=== PATIENT | male | born 1995 | race Caucasian/White ===

== ENCOUNTER 2018-08-18 21:00 | Inpatient (IN) ==
--- NOTE | 2018-08-18 21:03 | Emergency Department Note ---
General Adult HPI - General Stated complaint: SI Time Seen by Provider: 08/18/18 21:01 Source: patient, EMS Mode of arrival: EMS Limitations: no limitations Nursing Notes Reviewed: Yes Vital Signs Reviewed: Yes - Related Data Home Medications Medication Instructions Recorded Confirmed Potassium Chloride [Klor-Con 10] 50 meq PO QID 01/19/18 08/06/18 Previous Rx's Medication Instructions Recorded Fexofenadine HCl 180 mg PO DAILY #20 tablet 05/08/18 Guaifenesin/Dm/Pseudoephedrine 1 each PO Q6HR PRN #30 tablet 05/08/18 [Capmist Dm Tablet] Allergies Allergy/AdvReac Type Severity Reaction Status Date / Time peanut Allergy Severe Anaphylaxis Verified 08/18/18 21:17 Past Medical History - Past Medical History Medical history: Reports: non-contributory Surgical history: Reports: no surgical history Psychiatric history: Reports: anxiety, bipolar, depression, prior suicide attempt, schizophrenia, previous psychiatric hospitalization - Social History Smoking Status: Former smoker Smokeless Tobacco Status: No Alcohol use: Reports: rarely Drug use: Reports: none Course Vital Signs Temperature 98.8 F 08/18/18 21:04 Pulse Rate 90 08/18/18 21:04 Respiratory Rate 16 08/18/18 21:04 Blood Pressure 122/63 08/18/18 21:04 O2 Sat by Pulse Oximetry 98 08/18/18 21:04 Temperature 98.8 F 08/18/18 21:04 Pulse Rate 90 08/18/18 21:04 Respiratory Rate 16 08/18/18 21:04 Blood Pressure 122/63 08/18/18 21:04 O2 Sat by Pulse Oximetry 98 08/18/18 21:04 Oxygen Delivery Oxygen Delivery Room Air
[2018-08-18 21:37] LABS: Bilirubin,Urine Negative (Negative); Blood,Urine Negative (Negative); Clarity,Urine Clear (Clear); Color,Urine Yellow (Yellow); Glucose,Urine (UA) Normal (Normal); Ketones,Urine Negative (Negative); Leukocyte Esterase,Urine Negative (Negative); Nitrite,Urine Negative (Negative); Protein,Urine Negative (Neg-Trace); Specific Gravity,Urine 1.024 (1.010-1.025); Urobilinogen,Urine Normal (Normal)
--- NOTE | 2018-08-18 21:40 | Emergency Department Note ---
Disposition Clinical Impression: Suicidal ideation, Hallucinations Disposition: Admitted As Inpatient Condition: Fair Time of Disposition: 00:04 General Adult HPI - General Chief complaint: ED Psychiatric Symptoms Stated complaint: SI Time Seen by Provider: 08/18/18 21:01 Source: patient, EMS Limitations: no limitations Nursing Notes Reviewed: Yes Vital Signs Reviewed: Yes - History of Present Illness Pain Scale: 0 - Related Data Home Medications Medication Instructions Recorded Confirmed Potassium Chloride [Klor-Con 10] 10 meq PO TID 01/19/18 08/18/18 Divalproex (12 HR) [Depakote (12 500 mg PO HS 08/18/18 08/18/18 HR)] Emtricitabine/Tenofovir [Truvada 1 each PO DAILY 08/18/18 08/18/18 200 mg-300 mg Tablet] Naltrexone HCl 50 mg PO DAILY 08/18/18 08/18/18 Raltegravir Potassium [Isentress] 400 mg PO BID 08/18/18 08/18/18 Ziprasidone HCl [Geodon] 60 mg PO BID 08/18/18 08/18/18 traZODone [TraZODone] 50 mg PO HS 08/18/18 08/18/18 Allergies Allergy/AdvReac Type Severity Reaction Status Date / Time peanut Allergy Severe Anaphylaxis Verified 08/18/18 21:17 Past Medical History - Past Medical History Medical history: Reports: non-contributory Surgical history: Reports: no surgical history Psychiatric history: Reports: anxiety, bipolar, depression, prior suicide attempt, schizophrenia, previous psychiatric hospitalization - Social History Smoking Status: Former smoker Smokeless Tobacco Status: No Alcohol use: Reports: rarely Drug use: Reports: none Physical Exam - General Limitations: no limitations General appearance: alert Course Vital Signs Temperature 98.8 F 08/18/18 21:04 Pulse Rate 90 08/18/18 21:04 Respiratory Rate 16 08/18/18 21:04 Blood Pressure 122/63 08/18/18 21:04 O2 Sat by Pulse Oximetry 98 08/18/18 21:04 Temperature 98.8 F 08/18/18 21:04 Pulse Rate 90 08/18/18 21:04 Respiratory Rate 16 08/18/18 21:04 Blood Pressure 122/63 08/18/18 21:04 O2 Sat by Pulse Oximetry 98 08/18/18 21:04 Oxygen Delivery Oxygen Delivery Room Air Medical Decision Making - Lab Data Lab results reviewed: Yes I reviewed the patient's lab results. Result diagrams: 08/18/18 21:24 08/18/18 21:24 Lab Results 08/18/18 08/18/18 08/18/18 Range/Units 21:20 21:24 21:24 WBC 6.3 (4.3-11.1) K/mcL RBC 4.76 (4.19-5.50) M/mcL Hgb 14.9 (12.9-16.9) g/dL Hct 44.2 (37.5-50.1) % MCV 92.9 (83.0-100.0) fL MCH 31.3 (28.0-33.3) pg MCHC 33.7 (31.6-35.5) g/dL RDW 12.7 (11.5-14.5) % Plt Count 285 (140-400) K/mcL MPV 9.6 (9.4-12.4) fL Immature Gran % 0.3 (0-4) % Seg Neutrophils % 44.8 % Lymphocytes % 37.4 % Monocytes % 8.9 % Eosinophils % 7.5 % Basophils % 1.1 % Neutrophils # 2.8 (1.6-8.9) K/mcL Lymphocytes # 2.4 (0.6-4.6) K/mcL Monocytes # 0.6 (0.0-1.3) K/mcL Eosinophils # 0.5 (0.0-0.6) K/mcL Basophils # 0.1 (0.0-0.2) K/mcL Sodium (136-145) mEq/L Potassium (3.5-5.1) mEq/L Chloride (98-107) mEq/L Carbon Dioxide (23-29) mEq/L BUN (6-20) mg/dL Creatinine (0.70-1.30) mg/dL Est GFR ( Amer) (> 60) Est GFR (Non-Af Amer) (> 60) BUN/Creatinine Ratio (6-26) Glucose (70-105) mg/dL Calculated Osmolality (280-300) Calcium (8.6-10.3) mg/dL Urine Color Yellow (Yellow) Urine Clarity Clear (Clear) Urine pH 6.0 (5.0-8.0) pH Units Ur Specific [place] 1.024 (1.010-1.025) Urine Protein Negative (Neg-Trace) mg/dL Urine Glucose (UA) Normal (Normal) mg/dL Urine Ketones Negative (Negative) mg/dL Urine Blood Negative (Negative) Urine Nitrite Negative (Negative) Urine Bilirubin Negative (Negative) Urine Urobilinogen Normal (Normal) mg/dL Ur Leukocyte Esterase Negative (Negative) Salicylates (15.0-30.0) mg/dL Urine Opiates Screen Negative (Usnacp=212) ng/mL Acetaminophen (10-20) mcg/mL Ur Barbiturates Screen Negative (Rlnotg=634) ng/mL Ur Phencyclidine Scrn Negative (Cutoff=25) ng/mL Ur Amphetamines Screen Negative (Bcdzjy=0061) ng/mL U Benzodiazepines Scrn Negative (Wgxntu=299) ng/mL Urine Cocaine Screen Negative (Cutoff= 300) ng/mL U Marijuana (THC) Screen Negative (Cutoff = 50) ng/mL Ur Drug Screen Interp See Below Ethyl Alcohol (Less than 10) mg/dL 08/18/18 Range/Units 21:24 WBC (4.3-11.1) K/mcL RBC (4.19-5.50) M/mcL Hgb (12.9-16.9) g/dL Hct (37.5-50.1) % MCV (83.0-100.0) fL MCH (28.0-33.3) pg MCHC (31.6-35.5) g/dL RDW (11.5-14.5) % Plt Count (140-400) K/mcL MPV (9.4-12.4) fL Immature Gran % (0-4) % Seg Neutrophils % % Lymphocytes % % Monocytes % % Eosinophils % % Basophils % % Neutrophils # (1.6-8.9) K/mcL Lymphocytes # (0.6-4.6) K/mcL Monocytes # (0.0-1.3) K/mcL Eosinophils # (0.0-0.6) K/mcL Basophils # (0.0-0.2) K/mcL Sodium 139 (136-145) mEq/L Potassium 4.0 (3.5-5.1) mEq/L Chloride 105 (98-107) mEq/L Carbon Dioxide 26 (23-29) mEq/L BUN 12 (6-20) mg/dL Creatinine 0.99 (0.70-1.30) mg/dL Est GFR ( Amer) > 60 (> 60) Est GFR (Non-Af Amer) > 60 (> 60) BUN/Creatinine Ratio 12 (6-26) Glucose 90 (70-105) mg/dL Calculated Osmolality 287 (280-300) Calcium 9.8 (8.6-10.3) mg/dL Urine Color (Yellow) Urine Clarity (Clear) Urine pH (5.0-8.0) pH Units Ur Specific [place] (1.010-1.025) Urine Protein (Neg-Trace) mg/dL Urine Glucose (UA) (Normal) mg/dL Urine Ketones (Negative) mg/dL Urine Blood (Negative) Urine Nitrite (Negative) Urine Bilirubin (Negative) Urine Urobilinogen (Normal) mg/dL Ur Leukocyte Esterase (Negative) Salicylates < 2.5 L (15.0-30.0) mg/dL Urine Opiates Screen (Aezhdx=849) ng/mL Acetaminophen < 10 L (10-20) mcg/mL Ur Barbiturates Screen (Qcvwnl=192) ng/mL Ur Phencyclidine Scrn (Cutoff=25) ng/mL Ur Amphetamines Screen (Vvufra=1787) ng/mL U Benzodiazepines Scrn (Pynwst=458) ng/mL Urine Cocaine Screen (Cutoff= 300) ng/mL U Marijuana (THC) Screen (Cutoff = 50) ng/mL Ur Drug Screen Interp Ethyl Alcohol < 10 (Less than 10) mg/dL Attestation Statement - Attestation Attestation: I, Jatinder Caceres MD, personally evaluated this patient and discussed their management with the resident physician. I reviewed the resident's note and agree with the documented findings, medical decision making, and plan of care. 22-year-old male presents to the emergency department by EMS with a complaint of suicidal ideation as well as increased auditory and visual hallucinations. Patient states that he saw drops of blood falling and then puddles of blood on the floor and then he saw footprints like someone was walking through the blood. Patient states this made him feel suicidal and he wanted to cut himself. He does have a history of cutting himself and suicidal ideation in the past. He was just recently admitted to a psychiatric facility within the past 2 weeks. Patient states that he is on medication for his schizophrenia but he feels like it is not helping and his symptoms are getting worse. He feels like he needs to be admitted to the [place] psychiatric unit. 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 He states he becomes very mean and aggressive with his other personality. He denies any recent drug or alcohol use. On examination patient is a well-developed well-nourished well-appearing young male in no acute distress. He is alert and oriented 3. He is cooperative. There is no cyanosis or diaphoresis. Breath sounds are clear and equal bilat erally. Heart regular rate and rhythm. Abdomen soft and nontender with normal bowel sounds. No gross focal neurological deficits. Labs reviewed. No significant abnormalities. Tox screen negative. Patient medically cleared for psychiatric evaluation. [address] psychiatry department was consulted to evaluate patient in the emergency department. After evaluation the patient is being admitted to the [address] psychiatric unit.
[2018-08-18 21:41] LABS: Basophils # 0.1 K/mcL (0.0-0.2); Basophils % 1.1 %; Eosinophils # 0.5 K/mcL (0.0-0.6); Eosinophils % 7.5 %; Hematocrit 44.2 % (37.5-50.1); Hemoglobin 14.9 g/dL (12.9-16.9); Immature Granulocytes % 0.3 % (0-4); Lymphocytes # 2.4 K/mcL (0.6-4.6); Lymphocytes % 37.4 %; Mean Corpuscular HGB Conc 33.7 g/dL (31.6-35.5); Mean Corpuscular Hemoglobin 31.3 pg (28.0-33.3); Mean Corpuscular Volume 92.9 fL (83.0-100.0); Mean Platelet Volume 9.6 fL (9.4-12.4); Monocytes # 0.6 K/mcL (0.0-1.3); Monocytes % 8.9 %; Neutrophils # 2.8 K/mcL (1.6-8.9); Platelet Count 285 K/mcL (140-400); Red Blood Count 4.76 M/mcL (4.19-5.50); Red Cell Distribution Width 12.7 % (11.5-14.5); Segmented Neutrophils % 44.8 %; White Blood Count 6.3 K/mcL (4.3-11.1)
[2018-08-18 21:46] LABS: Amphetamine Screen,Urine Negative ng/mL (Cutoff=1000); Barbiturate Screen,Urine Negative ng/mL (Cutoff=200); Benzodiazepines Screen,Urine Negative ng/mL (Cutoff=200); Cannabinoid Screen,Urine Negative ng/mL (Cutoff = 50); Cocaine Screen,Urine Negative ng/mL (Cutoff= 300); Opiate Screen,Urine Negative ng/mL (Cutoff=300); Phencyclidine Screen,Urine Negative ng/mL (Cutoff=25)
[2018-08-18 21:59] LABS: Acetaminophen < 10 mcg/mL (10-20); BUN/Creatinine Ratio 12 (6-26); Blood Urea Nitrogen 12 mg/dL (6-20); Calcium 9.8 mg/dL (8.6-10.3); Carbon Dioxide 26 mEq/L (23-29); Chloride 105 mEq/L (98-107); Ethanol < 10 mg/dL (Less than 10); Glucose 90 mg/dL (70-105); Osmolality,Calculated 287 (280-300); Salicylate < 2.5 mg/dL (15.0-30.0); Sodium 139 mEq/L (136-145); eGFR For African Americans > 60 (> 60); eGFR For Non-African Americans > 60 (> 60)
--- NOTE | 2018-08-18 22:00 | Emergency Department Note ---
Disposition Clinical Impression: Suicidal ideation, Hallucinations Disposition: Admitted As Inpatient Condition: Fair Time of Disposition: 23:56 General Adult HPI - General Chief complaint: ED Psychiatric Symptoms Stated complaint: SI Time Seen by Provider: 08/18/18 21:01 Source: patient, EMS Mode of arrival: EMS Limitations: no limitations Nursing Notes Reviewed: Yes Vital Signs Reviewed: Yes - History of Present Illness HPI Narrative: Patient is a 22-year-old male with a past medical history of schizophrenia, PTSD as well as suicide attempt presents to the ED by squad for evaluation of SI and hallucinations. The patient states that he was recently discharged from a facility in [place] in which he was placed on new medications for his schizophrenia and he does not think that they are working any longer. States over the past few days he has been hallucinating seeing blood on the ground and seeing shoe Miguel Angel walked through the blood. He states that when this begins to have any starts that triggers to want to harm himself which in the past he has cut his forearms deep enough to cause significant bleeding and states that those are the same thoughts that he had this evening so he came in for evaluation. He denies any recent drug or alcohol use. Denies HI. 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 Pain Scale: 0 - Related Data Home Medications Medication Instructions Recorded Confirmed Potassium Chloride [Klor-Con 10] 10 meq PO TID 01/19/18 08/18/18 Divalproex (12 HR) [Depakote (12 500 mg PO HS 08/18/18 08/18/18 HR)] Emtricitabine/Tenofovir [Truvada 1 each PO DAILY 08/18/18 08/18/18 200 mg-300 mg Tablet] Naltrexone HCl 50 mg PO DAILY 08/18/18 08/18/18 Raltegravir Potassium [Isentress] 400 mg PO BID 08/18/18 08/18/18 Ziprasidone HCl [Geodon] 60 mg PO BID 08/18/18 08/18/18 traZODone [TraZODone] 50 mg PO HS 08/18/18 08/18/18 Allergies Allergy/AdvReac Type Severity Reaction Status Date / Time peanut Allergy Severe Anaphylaxis Verified 08/18/18 21:17 All systems ED: reviewed and negative except as stated. Review of Systems: As Per HPI Constitutional: Denies: fever Respiratory: Denies: cough Gastrointestinal: Denies: abdominal pain Psychiatric: Reports: anxiety, suicidal thoughts, auditory hallucinations, visual hallucinations. Denies: depression, homicidal thoughts Past Medical History - Past Medical History Attestation: Yes The following information was validated with the patient. Medical history: Reports: non-contributory Surgical history: Reports: no surgical history Psychiatric history: Reports: anxiety, bipolar, depression, prior suicide attempt, schizophrenia, previous psychiatric hospitalization - Social History Smoking Status: Former smoker Smokeless Tobacco Status: No Alcohol use: Reports: rarely Drug use: Reports: none Physical Exam - General Limitations: no limitations General appearance: alert - Head Head exam: atraumatic, normocephalic, normal inspection - Eye Eye exam: Present: normal appearance, PERRL, EOMI - ENT ENT exam: normal exam, normal oropharynx, mucous membranes moist - Neck Neck exam: Present: normal inspection, full ROM, trachea midline - Chest Chest inspection: Present: normal inspection, symmetric chest wall rise - Respiratory Respiratory exam: Present: normal lung sounds bilaterally. Absent: respiratory distress, wheezes - Cardiovascular Cardiovascular exam: Present: regular rate, normal rhythm, normal heart sounds, +S1, +S2 - Abdominal Exam Abdominal exam: Present: soft, Non-Tender. Absent: tenderness, distention, guarding, rebound, rigidity - Extremities Exam Extremities exam: Present: normal inspection, full ROM, normal capillary refill. Absent: tenderness, pedal edema - Back Exam Back exam: Present: normal inspection, full ROM. Absent: tenderness - Neurological Exam Neurological exam: Present: alert, oriented X3, CN II-XII intact. Absent: motor sensory deficit - Psychiatric Psychiatric exam: Present: normal affect, normal mood, suicidal ideation. Absent: depressed, agitated, anxious, flat affect - Expanded Psychiatric Exam Expanded psych exam: Present: paranoid, auditory hallucinations, visual hallucinations. Absent: poor eye contact, pressured speech - Skin Skin exam: Present: warm, dry, intact, normal color, other (Old scars on right forearm. ) Course Course Narrative: Patient is really recently seen on 08/07/18 for similar symptoms in which she was seen by the psychiatric team and admitted to a facility in [place], [place] at [facility] according to prior records. Patient will be medically cleared and seen by the [facility] team. - Reevaluation(s) Reevaluation #1: Patient accepted by the [facility] psychiatric team. Time: 23:55 Vital Signs Temperature 98.8 F 08/18/18 21:04 Pulse Rate 90 08/18/18 21:04 Respiratory Rate 16 08/18/18 21:04 Blood Pressure 122/63 08/18/18 21:04 O2 Sat by Pulse Oximetry 98 08/18/18 21:04 Temperature 98.8 F 08/18/18 21:04 Pulse Rate 90 08/18/18 21:04 Respiratory Rate 16 08/18/18 21:04 Blood Pressure 122/63 08/18/18 21:04 O2 Sat by Pulse Oximetry 98 08/18/18 21:04 Oxygen Delivery Oxygen Delivery Room Air Medical Decision Making - Medical Records Medical records reviewed: Yes I reviewed the patient's medical records. - Lab Data Lab results reviewed: Yes I reviewed the patient's lab results. Result diagrams: 08/18/18 21:24 08/18/18 21:24 Lab Results 08/18/18 08/18/18 08/18/18 Range/Units 21:20 21:24 21:24 WBC 6.3 (4.3-11.1) K/mcL RBC 4.76 (4.19-5.50) M/mcL Hgb 14.9 (12.9-16.9) g/dL Hct 44.2 (37.5-50.1) % MCV 92.9 (83.0-100.0) fL MCH 31.3 (28.0-33.3) pg MCHC 33.7 (31.6-35.5) g/dL RDW 12.7 (11.5-14.5) % Plt Count 285 (140-400) K/mcL MPV 9.6 (9.4-12.4) fL Immature Gran % 0.3 (0-4) % Seg Neutrophils % 44.8 % Lymphocytes % 37.4 % Monocytes % 8.9 % Eosinophils % 7.5 % Basophils % 1.1 % Neutrophils # 2.8 (1.6-8.9) K/mcL Lymphocytes # 2.4 (0.6-4.6) K/mcL Monocytes # 0.6 (0.0-1.3) K/mcL Eosinophils # 0.5 (0.0-0.6) K/mcL Basophils # 0.1 (0.0-0.2) K/mcL Sodium (136-145) mEq/L Potassium (3.5-5.1) mEq/L Chloride (98-107) mEq/L Carbon Dioxide (23-29) mEq/L BUN (6-20) mg/dL Creatinine (0.70-1.30) mg/dL Est GFR ( Amer) (> 60) Est GFR (Non-Af Amer) (> 60) BUN/Creatinine Ratio (6-26) Glucose (70-105) mg/dL Calculated Osmolality (280-300) Calcium (8.6-10.3) mg/dL Urine Color Yellow (Yellow) Urine Clarity Clear (Clear) Urine pH 6.0 (5.0-8.0) pH Units Ur Specific [place] 1.024 (1.010-1.025) Urine Protein Negative (Neg-Trace) mg/dL Urine Glucose (UA) Normal (Normal) mg/dL Urine Ketones Negative (Negative) mg/dL Urine Blood Negative (Negative) Urine Nitrite Negative (Negative) Urine Bilirubin Negative (Negative) Urine Urobilinogen Normal (Normal) mg/dL Ur Leukocyte Esterase Negative (Negative) Salicylates (15.0-30.0) mg/dL Urine Opiates Screen Negative (Rhzoph=381) ng/mL Acetaminophen (10-20) mcg/mL Ur Barbiturates Screen Negative (Umjduo=676) ng/mL Ur Phencyclidine Scrn Negative (Cutoff=25) ng/mL Ur Amphetamines Screen Negative (Fdaxsv=8648) ng/mL U Benzodiazepines Scrn Negative (Nbqvxj=957) ng/mL Urine Cocaine Screen Negative (Cutoff= 300) ng/mL U Marijuana (THC) Screen Negative (Cutoff = 50) ng/mL Ur Drug Screen Interp See Below Ethyl Alcohol (Less than 10) mg/dL 08/18/18 Range/Units 21:24 WBC (4.3-11.1) K/mcL RBC (4.19-5.50) M/mcL Hgb (12.9-16.9) g/dL Hct (37.5-50.1) % MCV (83.0-100.0) fL MCH (28.0-33.3) pg MCHC (31.6-35.5) g/dL RDW (11.5-14.5) % Plt Count (140-400) K/mcL MPV (9.4-12.4) fL Immature Gran % (0-4) % Seg Neutrophils % % Lymphocytes % % Monocytes % % Eosinophils % % Basophils % % Neutrophils # (1.6-8.9) K/mcL Lymphocytes # (0.6-4.6) K/mcL Monocytes # (0.0-1.3) K/mcL Eosinophils # (0.0-0.6) K/mcL Basophils # (0.0-0.2) K/mcL Sodium 139 (136-145) mEq/L Potassium 4.0 (3.5-5.1) mEq/L Chloride 105 (98-107) mEq/L Carbon Dioxide 26 (23-29) mEq/L BUN 12 (6-20) mg/dL Creatinine 0.99 (0.70-1.30) mg/dL Est GFR ( Amer) > 60 (> 60) Est GFR (Non-Af Amer) > 60 (> 60) BUN/Creatinine Ratio 12 (6-26) Glucose 90 (70-105) mg/dL Calculated Osmolality 287 (280-300) Calcium 9.8 (8.6-10.3) mg/dL Urine Color (Yellow) Urine Clarity (Clear) Urine pH (5.0-8.0) pH Units Ur Specific [place] (1.010-1.025) Urine Protein (Neg-Trace) mg/dL Urine Glucose (UA) (Normal) mg/dL Urine Ketones (Negative) mg/dL Urine Blood (Negative) Urine Nitrite (Negative) Urine Bilirubin (Negative) Urine Urobilinogen (Normal) mg/dL Ur Leukocyte Esterase (Negative) Salicylates < 2.5 L (15.0-30.0) mg/dL Urine Opiates Screen (Xpqmdz=912) ng/mL Acetaminophen < 10 L (10-20) mcg/mL Ur Barbiturates Screen (Doebqj=633) ng/mL Ur Phencyclidine Scrn (Cutoff=25) ng/mL Ur Amphetamines Screen (Grbazx=2186) ng/mL U Benzodiazepines Scrn (Tniaco=250) ng/mL Urine Cocaine Screen (Cutoff= 300) ng/mL U Marijuana (THC) Screen (Cutoff = 50) ng/mL Ur Drug Screen Interp Ethyl Alcohol < 10 (Less than 10) mg/dL
[2018-08-18] MEDS ORDERED: *HR* LORazepam 1 MG TABLET PO ONE (22:06)
[2018-08-19] MEDS ORDERED: Haloperidol Lactate 5 MG/ML VIAL IM PRN ×2 (01:06→08:39)
[2018-08-19] MEDS ORDERED: traZODone 50 MG TABLET PO PRN (01:06)
[2018-08-19] MEDS ORDERED: Mag Hydrox/Al Hydrox/Simeth 30 ML UDC PO PRN (01:06)
[2018-08-19] MEDS ORDERED: Acetaminophen 325 MG TABLET PO PRN (01:06)
[2018-08-19] MEDS ORDERED: *HR* LORazepam 1 MG TABLET PO PRN (01:06)
[2018-08-19] MEDS ORDERED: *HR* LORazepam 2 MG/ML VIAL IM PRN (01:06)
[2018-08-19] MEDS: hydrOXYzine pamoate 25 MG CAPSULE PO PRN ×2 (01:26→07:53)
--- NOTE | 2018-08-19 08:34 | Psychiatry History & Physical ---
Date of Encounter: 08/19/18 Time of Encounter: 07:30 History of Present Illness Patient Stated Chief Complaint: "I want to " Medicare Admission Attestation: For traditional Medicare patients the provided hospital inpatient services are reasonable and necessary and in the case of services not specified as inpatient-only under 42 CFR 419.22 (n), that they are appropriately provided as inpatient services in accordance 42 CFR 412.3. For Critical [facility] Hospital the patient may reasonably be expected to be discharged or transferred to a hospital within 96 hours after admission to the Critical Access Hospital. Admitted From: Emergency Dept Plans for Post Hospital Care: Home History of Present Illness: Mr. Israel is a 22 year old male 22-year-old male with a past medical history of schizophrenia, PTSD as well as suicide attempt presents to the ED by kanwal for evaluation of SI and hallucinations. The patient states that he was recently discharged from a facility in [place] in which he was placed on new medications for his schizophrenia and he does not think that they are working any longer. States over the past few days he has been hallucinating seeing blood on the ground and seeing shoe prints walked through the blood. He states that when this begins to have any starts that triggers to want to harm himself which in the past he has cut his forearms deep enough to cause significant bleeding and states that those are the same thoughts that he had this evening so he came in for evaluation. He denies any recent drug or alcohol use. Denies HI. 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 Reports sad mood, decreased interest, feelings of guilt and worthlessness, low energy ongoing suicidal thoughts with a plan to overdose. Past Med Surg Social Fam HX - Past Medical History Medical history: non-contributory, other - Past Psychiatric History Psychiatric history: Reports: bipolar, depression, prior suicide attempt, previous psychiatric hospitalization Past psychiatric history details: He has tried to cut himself in the past in order to . He has 4-5 prior psychiatric admissions. He has been here before. He was just an son released last week. He is linked this at a [employer] Family psychiatric history: Yes Family Psychiatric History Details: Mother bipolar Family History of Suicide: None - Past Surgical History Surgical History: no surgical history - Social History Smoking Status: Former smoker Smokeless Tobacco Status: No Alcohol use: rarely Drug use: none Occupational status: unemployed Current living situation: Home Activity Level: Independent ambulation Recent Out of Country Travel Within the Last 8 Weeks: No Exposure or Possible Exposure to Illness During Travel: No Additional social history: Lives with his girlfriend. Unemployed. - Family History Father Adopted: No Living Status: Still Living Hx Family Cardiac Disorders: No Hx Family Respiratory Disorders: No Hx Family Cancer: No Hx Family GI Disorders: No Hx Family Endocrine Disorder: No Hx Family Neuromuscular Disorders: Yes (hx of seizures) Hx Family HEENT Disorders: No Hx Family Autoimmune Disorders: No Medications & Allergies Potassium Chloride [Klor-Con 10] 10 meq PO TID 01/19/18 [History] Divalproex (12 HR) [Depakote (12 HR)] 500 mg PO HS 08/18/18 [History] Emtricitabine/Tenofovir [Truvada 200 mg-300 mg Tablet] 1 each PO DAILY 08/18/18 [History] Naltrexone HCl 50 mg PO DAILY 08/18/18 [History] Raltegravir Potassium [Isentress] 400 mg PO BID 08/18/18 [History] Ziprasidone HCl [Geodon] 60 mg PO BID 08/18/18 [History] traZODone [TraZODone] 50 mg PO HS 08/18/18 [History] Allergy/AdvReac Type Severity Reaction Status Date / Time peanut Allergy Severe Anaphylaxis Verified 08/18/18 21:17 Review of Systems Constitutional: Denies: fever Eyes: Denies: eye pain Ears, Nose, Throat: Denies: ear pain Cardiovascular: Denies: chest pain Respiratory: Denies: cough Gastrointestinal: Denies: abdominal pain Genitourinary male: Denies: urgency Musculoskeletal: Denies: back pain Integumentary: Denies: rash Neurological: Denies: headache Psychiatric: Reports: depression, anxiety, abnormal sleep pattern, suicidal idea tion, auditory hallucinations, visual hallucinations, anhedonia, confusion, memory loss, difficulty concentrating, irritability, mood swings Endocrine: Reports: fatigue Hematologic/Lymphatic: Denies: easy bleeding Allergic/Immunologic: Denies: facial swelling Exam - HEENT Head exam IM: Present: atraumatic Eye exam IM: Present: EOMI ENT exam IM: Present: mucous membranes moist - Neurological Neurological exam: Present: CN II-XII intact - Respiratory Respiratory exam IM: Absent: respiratory distress - GI/Abdominal GI/Abdominal exam IM: Present: no peritoneal signs - Extremities Extremities exam IM: Present: full ROM - Skin Skin exam IM: Absent: abrasion - Constitutional Vitals: Temp Pulse Resp BP Pulse Ox 97.8 F 78 16 117/69 98 08/18/18 21:17 08/18/18 21:17 08/18/18 21:17 08/18/18 21:17 08/18/18 21:04 General appearance: age & developmentally appropriate - Musculoskeletal Gait: slow Station: slouched Strength & Tone: mild weakness - Psychiatric Patient Orientation: Yes Person, Yes Time, Yes Place, Yes Circumstance Level of alertness: Alert Behavior: calm Psychomotor activity: Slowed Eye Contact: Minimal Contact Mood Description: Depressed Patient description of mood: Down Affect description: dysphoric Speech Volume: Soft/Quiet Speech pattern: normal rate Language & Vocabulary: consistent with education Thought Process: Linear, Goal Oriented Thought Content: Yes Suicidal ideation, No Homicidal ideation Perceptual Disturbances: Yes Auditory hallucinations, Yes Visual hallucinations Attention Span Ability: Capable of Focused Attention Memory Description: Grossly Intact Patient Reliability: Reliable Historian Fund of knowledge: Yes abstraction ability, Yes average, Yes aware of current events Intelligence Estimate: Average Judgment: Poor Insight: None Results - Drug Levels and Toxicology Drug Levels and Toxicology: Drug Levels and Toxicity 08/18/18 08/18/18 21:24 21:24 Urine Opiates Screen Negative Acetaminophen < 10 L Ur Barbiturates Screen Negative Ur Phencyclidine Scrn Negative Ur Amphetamines Screen Negative U Benzodiazepines Scrn Negative Urine Cocaine Screen Negative U Marijuana (THC) Screen Negative Ethyl Alcohol < 10 - Labs Labs: Laboratory Last Values WBC 6.3 K/mcL (4.3-11.1) 08/18/18 21:24 RBC 4.76 M/mcL (4.19-5.50) 08/18/18 21:24 Hgb 14.9 g/dL (12.9-16.9) 08/18/18 21:24 Hct 44.2 % (37.5-50.1) 08/18/18 21:24 MCV 92.9 fL (83.0-100.0) 08/18/18 21:24 MCH 31.3 pg (28.0-33.3) 08/18/18 21:24 MCHC 33.7 g/dL (31.6-35.5) 08/18/18 21:24 RDW 12.7 % (11.5-14.5) 08/18/18 21:24 Plt Count 285 K/mcL (140-400) 08/18/18 21:24 MPV 9.6 fL (9.4-12.4) 08/18/18 21:24 Immature Gran % 0.3 % (0-4) 08/18/18 21: Seg Neutrophils % 44.8 % 08/18/18 21: 37.4 % 08/18/18 21:24 8.9 % 08/18/18 21:24 7.5 % 08/18/18 21: 1.1 % 08/18/18 21: 2.8 K/mcL (1.6-8.9) 08/18/18 21: 2.4 K/mcL (0.6-4.6) 08/18/18 21: 0.6 K/mcL (0.0-1.3) 08/18/18 21: 0.5 K/mcL (0.0-0.6) 08/18/18 21: 0.1 K/mcL (0.0-0.2) 08/18/18 21:24 Sodium 139 mEq/L (136-145) 08/18/18 21:24 Potassium 4.0 mEq/L (3.5-5.1) 08/18/18 21: Chloride 105 mEq/L (98-107) 08/18/18 21: Carbon Dioxide 26 mEq/L (23-29) 08/18/18 21:24 BUN 12 mg/dL (6-20) 08/18/18 21:24 0.99 mg/dL (0.70-1.30) 08/18/18 21:24 Est GFR ( Amer) > 60 (> 60) 08/18/18 21:24 Est GFR (Non-Af Amer) > 60 (> 60) 08/18/18 21:24 12 (6-26) 08/18/18 21:24 Glucose 90 mg/dL (70-105) 08/18/18 21:24 287 (280-300) 08/18/18 21:24 Calcium 9.8 mg/dL (8.6-10.3) 08/18/18 21:24 Yellow (Yellow) 08/18/18 21:20 Clear (Clear) 08/18/18 21:20 6.0 pH Units (5.0-8.0) 08/18/18 21:20 Ur Specific [place] 1.024 (1.010-1.025) 08/18/18 21:20 Negative mg/dL (Neg-Trace) 08/18/18 21:20 Normal mg/dL (Normal) 08/18/18 21:20 Negative mg/dL (Negative) 08/18/18 21:20 Negative (Negative) 08/18/18 21:20 Negative (Negative) 08/18/18 21:20 Negative (Negative) 08/18/18 21:20 Normal mg/dL (Normal) 08/18/18 21:20 Ur Leukocyte Esterase Negative (Negative) 08/18/18 21:20 Salicylates < 2.5 mg/dL (15.0-30.0) L 08/18/18 21:24 Negative ng/mL (Vowwur=804) 08/18/18 21:24 Acetaminophen < 10 mcg/mL (10-20) L 08/18/18 21:24 Ur Barbiturates Screen Negative ng/mL (Yxvvxc=229) 08/18/18 21:24 Ur Phencyclidine Scrn Negative ng/mL (Cutoff=25) 08/18/18 21:24 Ur Amphetamines Screen Negative ng/mL (Thsyps=7866) 08/18/18 21:24 U Benzodiazepines Scrn Negative ng/mL (Dpsnnl=270) 08/18/18 21:24 Negative ng/mL (Cutoff= 300) 08/18/18 21:24 U Marijuana (THC) Screen Negative ng/mL (Cutoff = 50) 08/18/18 21:24 Ur Drug Screen Interp See Below 08/18/18 21:24 Ethyl Alcohol < 10 mg/dL (Less than 10) 08/18/18 21:24 Assessment and Plan (1) Bipolar disorder current episode depressed Current visit: Yes Status: Acute Plan: Admit inpatient for safety and stabilization, Close observation, Suicide Precautions per unit protocol, Encourage participation in unit milieu, Group Therapy, Monitor sleep, Monitor appetite Additional Plan: Increase Geodon to 80 mg by mouth twice a day. Get Depakote level. Consider further increase in this if it slow.Reviewed Interval hx Review any current labs Pt had an opportunity to ask questions and discuss current treatment plan. Supportive therapy was provided Pt encouraged to consider group or individual therapy Pt was in agreement with treatment plan. Pt was educated on the risks benefits and side effects of current medications and alternatives as well as the risks and benefits of no medication. AIMS = 0 lipids and hgba1c Risks, benefits, side effects, alternatives discussed w/pt: Yes Patient agreeable to treatment: Yes Plans for Post Hospital Care: Home Estimated Length of Stay (Days): 5 Qualifiers: Current episode severity: severe Psychotic features: with psychotic features Qualified Code(s): F31.5 - Bipolar disorder, current episode depressed, severe, with psychotic features
[2018-08-19] MEDS ORDERED: hydrOXYzine pamoate 25 MG CAPSULE PO PRN (08:39)
[2018-08-19] MEDS ORDERED: Ziprasidone 20 MG CAPSULE PO SCH (09:00)
[2018-08-19] MEDS: traZODone 50 MG TABLET PO SCH ×2 (09:21→20:10)
[2018-08-19] MEDS: NALTREXONE HCL 50 MG TABLET PO SCH (09:49)
[2018-08-19] MEDS: RALTEGRAVIR POTASSIUM 400 MG TABLET PO SCH ×2 (09:49→20:10)
[2018-08-19] MEDS: Ziprasidone 80 MG CAPSULE PO SCH ×2 (09:49→20:10)
[2018-08-19] MEDS: Divalproex (12 HR) 500 MG TABLET PO SCH ×2 (09:50→20:10)
[2018-08-19 09:51] LABS: Basophils # 0.1 K/mcL (0.0-0.2); Eosinophils # 0.4 K/mcL (0.0-0.6); Eosinophils % 7.6 %; Immature Granulocytes % 0.2 % (0-4); Lymphocytes # 1.9 K/mcL (0.6-4.6); Lymphocytes % 35.6 %; Mean Corpuscular HGB Conc 33.3 g/dL (31.6-35.5); Mean Corpuscular Hemoglobin 31.1 pg (28.0-33.3); Mean Corpuscular Volume 93.3 fL (83.0-100.0); Mean Platelet Volume 9.8 fL (9.4-12.4); Monocytes # 0.4 K/mcL (0.0-1.3); Monocytes % 8.4 %; Neutrophils # 2.5 K/mcL (1.6-8.9); Platelet Count 289 K/mcL (140-400); Red Cell Distribution Width 12.6 % (11.5-14.5); Segmented Neutrophils % 47.2 %; White Blood Count 5.3 K/mcL (4.3-11.1)
[2018-08-19 09:53] LABS: Estimated Average Glucose 103 mg/dl
[2018-08-19 10:05] LABS: Alanine Aminotransferase 17 Units/L (7-52); Albumin 4.6 g/dL (3.5-5.7); Albumin/Globulin Ratio 2.2 (1.1-2.2); Alkaline Phosphatase 61 Units/L (34-104); Aspartate Amino Transferase 16 Units/L (13-39); BUN/Creatinine Ratio 8 (6-26); Bilirubin,Total 0.4 mg/dL (0.3-1.0); Blood Urea Nitrogen 8 mg/dL (6-20); Calcium 9.6 mg/dL (8.6-10.3); Carbon Dioxide 31 mEq/L (23-29); Chloride 100 mEq/L (98-107); Cholesterol 156 mg/dL (< 200); Globulin 2.1 g/dL (2.4-3.5); Glucose 88 mg/dL (70-105); HDL Cholesterol 52 mg/dL (40-59); LDL Cholesterol,Calculated 92 mg/dL (0-99); Osmolality,Calculated 284 (280-300); Potassium 3.6 mEq/L (3.5-5.1); Sodium 138 mEq/L (136-145); Total Protein 6.7 g/dL (6.4-8.9); Triglycerides 59 mg/dL (< 150); eGFR For African Americans > 60 (> 60); eGFR For Non-African Americans > 60 (> 60)
[2018-08-19] MEDS: MOM Conc 10 ML UD.LIQ PO PRN (20:10)
[2018-08-20] MEDS: Ziprasidone 80 MG CAPSULE PO SCH (09:19)
[2018-08-20] MEDS: RALTEGRAVIR POTASSIUM 400 MG TABLET PO SCH (09:19)
[2018-08-20] MEDS: NALTREXONE HCL 50 MG TABLET PO SCH (09:20)
[2018-08-20 09:21] VITALS: BP 106/63
[2018-08-20] MEDS: MOM Conc 10 ML UD.LIQ PO PRN (09:27)
--- NOTE | 2018-08-20 11:25 | Discharge Summary ---
Date of Encounter: 08/20/18 Time of Encounter: 10:30 Diagnosis - Discharge Diagnosis (1) Bipolar disorder current episode depressed Status: Acute Qualifiers: Current episode severity: severe Psychotic features: with psychotic features Qualified Code(s): F31.5 - Bipolar disorder, current episode depressed, severe, with psychotic features Medications - Discharge Medications Prescriptions: Ziprasidone [Geodon] 80 mg PO BID #60 capsule hydrOXYzine pamoate [HydrOXYzine Pamoate] 50 mg PO TID PRN #90 capsule PRN Reason: Anxiety Potassium Chloride [Klor-Con 10] 50 meq PO TID 01/19/18 [History] Emtricitabine/Tenofovir [Truvada 200 mg-300 mg Tablet] 1 each PO DAILY 08/18/18 [History] Naltrexone HCl 50 mg PO QAM 08/18/18 [History] Raltegravir Potassium [Isentress] 400 mg PO BID 08/18/18 [History] traZODone [TraZODone] 50 mg PO HS 08/18/18 [History] DiphenhydraMINE [Benadryl] 50 mg PO DAILY 08/19/18 [History] Divalproex Sodium 500 mg PO HS 08/19/18 [History] Ziprasidone [Geodon] 80 mg PO BID #60 capsule 08/20/18 [Rx] hydrOXYzine pamoate [HydrOXYzine Pamoate] 50 mg PO TID PRN #90 capsule 08/20/18 [Rx] Allergy/AdvReac Type Severity Reaction Status Date / Time peanut Allergy Severe Anaphylaxis Verified 08/18/18 21:17 Results Procedures and tests throughout hospitalization: Completed Lab Orders Category Date Time Status Acetaminophen Stat Lab 08/18/18 21:24 Completed Basic Metabolic Panel Stat Lab 08/18/18 21:24 Completed Complete Blood Count [HEME] Routine Lab 08/19/18 09:03 Completed Complete Blood Count [HEME] Stat Lab 08/18/18 21:24 Completed Comprehensive Metabolic Panel Routine Lab 08/19/18 09:05 Completed Drug Screen, Urine [UCHEM] Stat Lab 08/18/18 21:24 Completed Ethanol Stat Lab 08/18/18 21:24 Completed Hgb A1C Routine Lab 08/19/18 09:05 Completed Lipid Panel Routine Lab 08/19/18 09:05 Completed Salicylate Stat Lab 08/18/18 21:24 Completed Treponema Pallidum Ab Routine Lab 08/19/18 09:05 Completed Urinalysis reflex Microscopic [URIN] Stat Lab 08/18/18 21:20 Completed Lab Results 08/18/18 08/18/18 08/18/18 Range/Units 21:20 21:24 21:24 WBC 6.3 (4.3-11.1) K/mcL RBC 4.76 (4.19-5.50) M/mcL Hgb 14.9 (12.9-16.9) g/dL Hct 44.2 (37.5-50.1) % MCV 92.9 (83.0-100.0) fL MCH 31.3 (28.0-33.3) pg MCHC 33.7 (31.6-35.5) g/dL RDW 12.7 (11.5-14.5) % Plt Count 285 (140-400) K/mcL MPV 9.6 (9.4-12.4) fL Immature Gran % 0.3 (0-4) % Seg Neutrophils % 44.8 % Lymphocytes % 37.4 % Monocytes % 8.9 % Eosinophils % 7.5 % Basophils % 1.1 % Neutrophils # 2.8 (1.6-8.9) K/mcL Lymphocytes # 2.4 (0.6-4.6) K/mcL Monocytes # 0.6 (0.0-1.3) K/mcL Eosinophils # 0.5 (0.0-0.6) K/mcL Basophils # 0.1 (0.0-0.2) K/mcL Sodium (136-145) mEq/L Potassium (3.5-5.1) mEq/L Chloride (98-107) mEq/L Carbon Dioxide (23-29) mEq/L BUN (6-20) mg/dL Creatinine (0.70-1.30) mg/dL Est GFR ( Amer) (> 60) Est GFR (Non-Af Amer) (> 60) BUN/Creatinine Ratio (6-26) Glucose (70-105) mg/dL Est Mean Plasma Glucose mg/dl Hemoglobin A1c ( - 5.6) % Calculated Osmolality (280-300) Calcium (8.6-10.3) mg/dL Total Bilirubin (0.3-1.0) mg/dL AST (13-39) Units/L ALT (7-52) Units/L Alkaline Phosphatase (34-104) Units/L Serum Total Protein (6.4-8.9) g/dL Albumin (3.5-5.7) g/dL Globulin (2.4-3.5) g/dL Albumin/Globulin Ratio (1.1-2.2) Triglycerides (< 150) mg/dL Cholesterol (< 200) mg/dL LDL Cholesterol, Calc (0-99) mg/dL VLDL Cholesterol, Calc (< 31) mg/dL HDL Cholesterol (40-59) mg/dL Cholesterol/HDL Ratio (0-4.9) Urine Color Yellow (Yellow) Urine Clarity Clear (Clear) Urine pH 6.0 (5.0-8.0) pH Units Ur Specific [place] 1.024 (1.010-1.025) Urine Protein Negative (Neg-Trace) mg/dL Urine Glucose (UA) Normal (Normal) mg/dL Urine Ketones Negative (Negative) mg/dL Urine Blood Negative (Negative) Urine Nitrite Negative (Negative) Urine Bilirubin Negative (Negative) Urine Urobilinogen Normal (Normal) mg/dL Ur Leukocyte Esterase Negative (Negative) Salicylates (15.0-30.0) mg/dL Urine Opiates Screen Negative (Cdbwrs=078) ng/mL Acetaminophen (10-20) mcg/mL Ur Barbiturates Screen Negative (Kugyyn=583) ng/mL Ur Phencyclidine Scrn Negative (Cutoff=25) ng/mL Ur Amphetamines Screen Negative (Prpvsf=8017) ng/mL U Benzodiazepines Scrn Negative (Gxmkkd=169) ng/mL Urine Cocaine Screen Negative (Cutoff= 300) ng/mL U Marijuana (THC) Screen Negative (Cutoff = 50) ng/mL Ur Drug Screen Interp See Below Ethyl Alcohol (Less than 10) mg/dL T.pallidum Ab Interpret (NEGATIVE) 08/18/18 08/19/18 08/19/18 Range/Units 21:24 09:03 09:05 WBC 5.3 (4.3-11.1) K/mcL RBC 4.50 (4.19-5.50) M/mcL Hgb 14.0 (12.9-16.9) g/dL Hct 42.0 (37.5-50.1) % MCV 93.3 (83.0-100.0) fL MCH 31.1 (28.0-33.3) pg MCHC 33.3 (31.6-35.5) g/dL RDW 12.6 (11.5-14.5) % Plt Count 289 (140-400) K/mcL MPV 9.8 (9.4-12.4) fL Immature Gran % 0.2 (0-4) % Seg Neutrophils % 47.2 % Lymphocytes % 35.6 % Monocytes % 8.4 % Eosinophils % 7.6 % Basophils % 1.0 % Neutrophils # 2.5 (1.6-8.9) K/mcL Lymphocytes # 1.9 (0.6-4.6) K/mcL Monocytes # 0.4 (0.0-1.3) K/mcL Eosinophils # 0.4 (0.0-0.6) K/mcL Basophils # 0.1 (0.0-0.2) K/mcL Sodium 139 138 (136-145) mEq/L Potassium 4.0 3.6 (3.5-5.1) mEq/L Chloride 105 100 (98-107) mEq/L Carbon Dioxide 26 31 H (23-29) mEq/L BUN 12 8 (6-20) mg/dL Creatinine 0.99 0.96 (0.70-1.30) mg/dL Est GFR ( Amer) > 60 > 60 (> 60) Est GFR (Non-Af Amer) > 60 > 60 (> 60) BUN/Creatinine Ratio 12 8 (6-26) Glucose 90 88 (70-105) mg/dL Est Mean Plasma Glucose mg/dl Hemoglobin A1c ( - 5.6) % Calculated Osmolality 287 284 (280-300) Calcium 9.8 9.6 (8.6-10.3) mg/dL Total Bilirubin 0.4 (0.3-1.0) mg/dL AST 16 (13-39) Units/L ALT 17 (7-52) Units/L Alkaline Phosphatase 61 (34-104) Units/L Serum Total Protein 6.7 (6.4-8.9) g/dL Albumin 4.6 (3.5-5.7) g/dL Globulin 2.1 L (2.4-3.5) g/dL Albumin/Globulin Ratio 2.2 (1.1-2.2) Triglycerides 59 (< 150) mg/dL Cholesterol 156 (< 200) mg/dL LDL Cholesterol, Calc 92 (0-99) mg/dL VLDL Cholesterol, Calc 12 (< 31) mg/dL HDL Cholesterol 52 (40-59) mg/dL Cholesterol/HDL Ratio 3.0 (0-4.9) Urine Color (Yellow) Urine Clarity (Clear) Urine pH (5.0-8.0) pH Units Ur Specific [place] (1.010-1.025) Urine Protein (Neg-Trace) mg/dL Urine Glucose (UA) (Normal) mg/dL Urine Ketones (Negative) mg/dL Urine Blood (Negative) Urine Nitrite (Negative) Urine Bilirubin (Negative) Urine Urobilinogen (Normal) mg/dL Ur Leukocyte Esterase (Negative) Salicylates < 2.5 L (15.0-30.0) mg/dL Urine Opiates Screen (Eymvwv=174) ng/mL Acetaminophen < 10 L (10-20) mcg/mL Ur Barbiturates Screen (Unhreo=442) ng/mL Ur Phencyclidine Scrn (Cutoff=25) ng/mL Ur Amphetamines Screen (Wqhjqi=1135) ng/mL U Benzodiazepines Scrn (Tiswcb=132) ng/mL Urine Cocaine Screen (Cutoff= 300) ng/mL U Marijuana (THC) Screen (Cutoff = 50) ng/mL Ur Drug Screen Interp Ethyl Alcohol < 10 (Less than 10) mg/dL T.pallidum Ab Interpret (NEGATIVE) 08/19/18 08/19/18 Range/Units 09:05 09:05 WBC (4.3-11.1) K/mcL RBC (4.19-5.50) M/mcL Hgb (12.9-16.9) g/dL Hct (37.5-50.1) % MCV (83.0-100.0) fL MCH (28.0-33.3) pg MCHC (31.6-35.5) g/dL RDW (11.5-14.5) % Plt Count (140-400) K/mcL MPV (9.4-12.4) fL Immature Gran % (0-4) % Seg Neutrophils % % Lymphocytes % % Monocytes % % Eosinophils % % Basophils % % Neutrophils # (1.6-8.9) K/mcL Lymphocytes # (0.6-4.6) K/mcL Monocytes # (0.0-1.3) K/mcL Eosinophils # (0.0-0.6) K/mcL Basophils # (0.0-0.2) K/mcL Sodium (136-145) mEq/L Potassium (3.5-5.1) mEq/L Chloride (98-107) mEq/L Carbon Dioxide (23-29) mEq/L BUN (6-20) mg/dL Creatinine (0.70-1.30) mg/dL Est GFR ( Amer) (> 60) Est GFR (Non-Af Amer) (> 60) BUN/Creatinine Ratio (6-26) Glucose (70-105) mg/dL Est Mean Plasma Glucose 103 mg/dl Hemoglobin A1c 5.2 ( - 5.6) % Calculated Osmolality (280-300) Calcium (8.6-10.3) mg/dL Total Bilirubin (0.3-1.0) mg/dL AST (13-39) Units/L ALT (7-52) Units/L Alkaline Phosphatase (34-104) Units/L Serum Total Protein (6.4-8.9) g/dL Albumin (3.5-5.7) g/dL Globulin (2.4-3.5) g/dL Albumin/Globulin Ratio (1.1-2.2) Triglycerides (< 150) mg/dL Cholesterol (< 200) mg/dL LDL Cholesterol, Calc (0-99) mg/dL VLDL Cholesterol, Calc (< 31) mg/dL HDL Cholesterol (40-59) mg/dL Cholesterol/HDL Ratio (0-4.9) Urine Color (Yellow) Urine Clarity (Clear) Urine pH (5.0-8.0) pH Units Ur Specific [place] (1.010-1.025) Urine Protein (Neg-Trace) mg/dL Urine Glucose (UA) (Normal) mg/dL Urine Ketones (Negative) mg/dL Urine Blood (Negative) Urine Nitrite (Negative) Urine Bilirubin (Negative) Urine Urobilinogen (Normal) mg/dL Ur Leukocyte Esterase (Negative) Salicylates (15.0-30.0) mg/dL Urine Opiates Screen (Ubkbhh=332) ng/mL Acetaminophen (10-20) mcg/mL Ur Barbiturates Screen (Uqkcwo=459) ng/mL Ur Phencyclidine Scrn (Cutoff=25) ng/mL Ur Amphetamines Screen (Wfznzq=2376) ng/mL U Benzodiazepines Scrn (Yezvfb=328) ng/mL Urine Cocaine Screen (Cutoff= 300) ng/mL U Marijuana (THC) Screen (Cutoff = 50) ng/mL Ur Drug Screen Interp Ethyl Alcohol (Less than 10) mg/dL T.pallidum Ab Interpret Negative (NEGATIVE) Provider Date of admission: 08/19/18 09:44 Primary care physician: PCP NONE Consults: 08/19/18 08:00 Consult to Pastoral Services [CONS] Routine Comment: Discharging clinician: Olivia Yu Psychiatry Exam - Constitutional Vitals: Temp Pulse Resp BP Pulse Ox 97.9 F 91 20 106/63 20 08/20/18 09:00 08/20/18 09:00 08/20/18 09:00 08/20/18 09:00 08/20/18 09:00 General appearance: age & developmentally appropriate, well-groomed, well- nourished - Musculoskeletal Gait: normal Station: relaxed Strength & Tone: normal for patient - Psychiatric Patient Orientation: Yes Person, Yes Time, Yes Place Level of alertness: Alert Behavior: calm, cooperative Psychomotor activity: Normal Eye Contact: Maintains Eye Contact Mood Description: Euthymic/stable Patient description of mood: Good Affect description: congruent with mood, full range Speech Volume: Normal Speech pattern: normal rate, normal rhythm, normal tone, fluent, spontaneous Language & Vocabulary: consistent with education Thought Process: Linear, Goal Oriented Thought Content: No Suicidal ideation, No Homicidal ideation, No Overt delusions Perceptual Disturbances: No Auditory hallucinations, No Visual hallucinations Attention Span Ability: Capable of Focused Attention Memory Description: Grossly Intact Patient Reliability: Reliable Historian Fund of knowledge: Yes abstraction ability, Yes aware of current events Intelligence Estimate: Average Judgment: Good Insight: Full Hospital Course Hospital course: Mr. Israel is a 22 year old male who was admitted for hallucinations and suicidal thoughts. He was restarted on his medication which he had missed a few doses of and began to feel a lot better. Hallucinations resolved as did his s uicidal thoughts. His Geodon dose was increased to 80 twice a day and he was instructed to take this with food.Patient was educated of diagnosis and the risk-benefit side effects of this alternative treatment options and was monitored for responsiveness and side effects. Mood anxiety sleep and appetite interest improved as did future orientation. Self-harm thoughts subsided, thinking cleared, psychosis resolved, and mood stabilized. Patient was able to attend both individual and group therapy sessions as well as meet with the psychiatrist daily and urged to discuss any medication or treatment issues or other concerns. The patient was educated primarily by verbal means about their diagnosis and manifestations in their life. The option for treatment including group and individual therapy programming was offered to the patient in addition to the use of medications with all their potential risks, benefits, and side effects as well as the risks of not taking medication and non-adhereance were discussed with the patient at length. The patient was given the opportunity to ask questions and was noted to participate in the treatment in the planning process. The patient felt ready and eager to be discharged from the inpatient psychiatric unit to continue on with treatment as an outpatient. The patient agreed that is they were safe for this disposition. The patient was considered to be able to participate in informed consent and decision making with respect to medical, legal, and financial issues of the time of discharge. At the time of discharge the patient adamantly denied any concerns for lethality including suicidal or homicidal thoughts ideations or plans and was future oriented toward ongoing mental health care. Time spent discussing smoking cessation with patient: 3 to 10 minutes Does patient wish to continue nicotine replacement upon disc: No - Time Spent with Patient Total time spent providing and/or coordinating discharge services: 25 Less than 30 minutes Specific discharge activities: Interval history reviewed. Available labs reviewed . Psychotherapy provided. Patient had an opportunity to ask questions and address concerns. Patient was in agreement with the treatment plan. The risks benefits and side effects of medications were discussed with the patient, including alternatives and treatment. The patient was educated on the abstaining from any alcohol or illicit substances, following up with all scheduled appointments, and taking all medications as prescribed. Assessment and Plan - Patient/Caregiver Discharge Instructions Activity: resume usual activities as tolerated Diet: regular diet Additional Instructions: Continue current medications. Follow up with outpatient mental health. Encourage continued therapy in a group or individual setting. The patient was discharged to home. - Follow up Plan Follow up with: Pepe Rush [Outside] - 08/26/18 11:00 am (You have an appointment scheduled with Tere Linda on Sunday, August 26, 2018 at 11:00 AM for Counseling and Case Management. Please contact the office at least 24 hours in advance if you are unable to keep your appointment(s). ) Functional capacity at discharge: independent ambulation Overall status at discharge: Stable Disposition: Home, Self-Care Quality - Multiple Antipsychotics Patient discharged on 2 or more antipsychotic medications: No Procedures - Procedures Procedures: Medication Management, Crisis Stabilization, Supportive Therapy, Group Therapy, Psychoeducational Therapy
== END 2018-08-20 12:45 | disposition home or self-care (01) | DRG 753 ==
LOC: EMEROOARM 21:00 → 1ANU 21:00 → SUATTDRO 23:58 → 1ANU 08-19 00:10
PROVIDERS: ADMIT Psychiatry & Neurology Psychiatry; ATTEND Psychiatry & Neurology Psychiatry